=== PATIENT | female | born 1940 | race Caucasian/White ===

== ENCOUNTER 2022-06-21 14:15 | Outpatient (REF) | payer OTHER, SELFPAY ==
--- NOTE | ~2022-06-21 | XR_ITS ---
EXAMINATION: XR LUMBOSACRAL SPINE WITH OBLIQUES CLINICAL INFORMATION: Low back pain COMPARISON: None available. TECHNIQUE: 4 views of the lumbar spine including flexion-extension views FINDINGS: There is curvature of the mid lumbar spine to the left and lumbar sacral spine to the right. Bone alignment is otherwise normal. No instability on flexion-extension views. Degenerative spondylosis and degenerative disc disease at L1-L2 3 and L3-L4. Degenerative disc disease at L5-S1. Lower lumbar spine facet arthritis. No fracture or dislocation. High attenuation air-fluid level in the right abdomen anteriorly question representing gallstones. XR/XR lumbar spine 4V min IMPRESSION: Scoliosis and degenerative changes. No instability on flexion-extension views. Question gallstones.
== END 2022-06-21 14:16 | disposition home or self-care (01) ==
LOC: HO.HOSX 14:15
PROVIDERS: Visit Provider Physician Assistant
DX: M54.40 Lumbago with sciatica, unspecified side (principal)
CPT/HCPCS: 72110

== ENCOUNTER 2022-07-25 09:53 | Inpatient (IN) | payer MEDICARE, SELFPAY ==
--- NOTE | 2022-07-14 | ECG_ITS ---
Test Reason : PREOP Blood Pressure : / mmHG Vent. Rate : 056 BPM Atrial Rate : 056 BPM P-R Int : 186 ms QRS Dur : 086 ms QT Int : 422 ms P-R-T Axes : 055 -14 109 degrees QTc Int : 407 ms Sinus bradycardia Cannot rule out Anterior infarct , age undetermined Abnormal ECG No previous ECGs available Referred By: Norma Johns Electronically Signed By:EVANS NEUMANN
[2022-07-14 12:15] VITALS: BP 156/85; PULSE 56; RESP 20; O2SAT 97; BMI 30.2
--- NOTE | 2022-07-14 12:25 | P.CONAN_ITS ---
Documented by User: Norma Johns NP 07/22/22 08:44 HPI - Anesthesia Eval Consult details Narrative: 81yo F for L3-4,L4-5 Transkambin Lumbar Interbody Fusion Last PCP eval 04/2022. Chronic conditions stable. Mild murmur, no edema/CP/SOB. Discussed with Dr Araiza. No further testing PMFSH Active Problems Active Problems: All Active Problems (Updated 07/14/22 @ 12:09 by Kailyn Alvarado RN) Back pain of lumbar region with sciatica (Acute) Past Medical History Medical History (Updated 07/14/22 @ 12:09 by Kailyn Alvarado RN) Back pain Diverticulosis Elevated cholesterol GERD (gastroesophageal reflux disease) HTN (hypertension) Hypothyroid Lumbar stenosis with neurogenic claudication Osteopenia Peptic ulcer Type 2 diabetes mellitus Family History Family history of problems with anesthesia: No Surgical History Surgical History (Updated 07/14/22 @ 12:11 by Kailyn Alvarado RN) H/O colonoscopy History of back surgery History of carpal tunnel release Hx of bilateral cataract extraction Hx of neck surgery Hx of tubal ligation History of Problems with Anesthesia: No Social History Social History Are you a primary intensive care unit registered nurse to a significant other at home: No Do you presently have visiting nurse or other home services: No Patient Tobacco Use Status: Never used Tobacco Use of substances other than those prescribed or required for medical reasons: No Have you been hit, kicked, punched, or otherwise hurt by someone within the past year? If so, by whom?: No Are you DNR?: No Advance Directives: No (has primary contact listed) Advance Directives Information Provided: Yes Advance Directives on File: No Recently lost weight without trying: No Eating poorly because of decreased appetite: No Nutrition Risks: Surgical patient >75years Poor oral hygiene: No (upper partial) Narrative Narrative: No recent illness No CP/SOB with > 4 mets, only limitation is back pain Meds Allergies Allergy/AdvReac Type Severity Reaction Status Date / Time No Known Allergies Allergy Verified 07/13/22 09:54 Home Medications Medication Instructions Recorded Confirmed Last Taken Type aspirin 81 mg tablet,delayed 81 mg PO DAILY 07/13/22 07/13/22 07/24/22 History release calcium carbonate 600 mg-vitamin 1 tab PO BID 07/13/22 07/13/22 07/24/22 History D3 10 mcg (400 unit) tablet famotidine 20 mg tablet 20 mg PO BID PRN Acid Reflux 07/13/22 07/13/22 07/25/22 History hydrochlorothiazide 25 mg tablet 12.5 mg PO QAM 07/13/22 07/14/22 07/24/22 History levothyroxine 50 mcg tablet 50 mcg PO QAM 07/13/22 07/14/22 07/25/22 History lisinopril 10 mg tablet 10 mg PO QAM 07/13/22 07/14/22 07/24/22 History mirtazapine 7.5 mg tablet 7.5 mg PO BEDTIME PRN Insomnia 07/13/22 07/13/22 07/24/22 History simvastatin 40 mg tablet 40 mg PO BEDTIME 07/13/22 07/14/22 07/24/22 History omega-3s 300 du-xtu-agw-other 1 cap PO QAM 07/14/22 07/14/22 07/24/22 History [id number] oil 1,000 mg capsule ([place]-3 Fish Oil) Exam Exam Date and Time: July 14, 2022 1225 Height,Weight and Vital Signs: Height 5 ft 1 in Weight 72.575 kg Last Vital Signs Pulse 56 07/14/22 12:15 Resp 20 07/14/22 12:15 BP 156/85 H 07/14/22 12:15 Pulse Ox 97 07/14/22 12:15 O2 Del Method Room Air 07/14/22 12:15 Pertinent Lab Results Pertinent Lab Results: Lab Results 07/14/22 07/14/22 07/14/22 Range/Units 12:54 12:54 12:54 WBC 7.6 (4.8-10.8) X10*3/uL RBC 4.54 (4.20-5.50) X10*6/uL Hgb 15.0 (12.0-16.0) g/dl Hct 43.6 (37.0-47.0) % MCV 96.0 (80.0-98.0) fL MCH 33.0 (27.0-33.0) pg MCHC 34.4 (31.0-35.0) g/dl RDW 12.6 (11.0-16.0) % Plt Count 298 (160-400) X10*3/uL MPV 10.1 (9.4-12.3) fL Absolute Nucleated RBC 0.000 (0.0-0.012) X10*3/uL Nucleated RBC % (auto) 0.0 (0.0-0.2) /100WBC Sodium 138 (135-145) mmol/L Potassium 4.4 (3.3-5.1) mmol/L Chloride 102 (96-108) mmol/L Carbon Dioxide 26 (22-29) mmol/L Anion Gap 14 (12-20) BUN 14 (9-16) mg/dL Creatinine 0.77 (0.5-1.4) mg/dL Estim Creat Clear Calc 53.0 Estimated GFR > 60 Random Glucose 137 H (60-115) mg/dL Estimat Average Glucose 151 mg/dL Hemoglobin A1c % 6.9 % Calcium 10.5 H (8.4-10.2) mg/dL Narrative Narrative: EKG 06/2022 Vent. Rate : 056 BPM ? ? Atrial Rate : 056 BPM ?? P-R Int : 186 ms? QRS Dur : 086 ms ? ? QT Int : 422 ms ? ? ? P-R-T Axes : 055 -14 109 degrees ?? QTc Int : 407 ms ? Sinus bradycardia Cannot rule out Anterior infarct , age undetermined Abnormal ECG No previous ECGs available No significant change when compared to 08/2021 EKG from outside facility Airway Mallampati Class: I TM Dist: >3cm Neck ROM: Full Partial: Upper Loose/Missing/Broken Teeth: Yes (lower molars missing) Heart: RRR, +M Lungs: CTAB Assessment and Plan Assessment Anesthesia Assessment: Anesthesia Plan Discussed and PAT Visit Final Anesthetic Review Family History of Problems with Anesthesia: No History of Problems with Anesthesia: No Documented by User: Reina Schmid MD 07/25/22 11:56 PMFSH Past Medical History Medical History (Updated 07/14/22 @ 12:09 by Kailyn Alvarado RN) Back pain Diverticulosis Elevated cholesterol GERD (gastroesophageal reflux disease) HTN (hypertension) Hypothyroid Lumbar stenosis with neurogenic claudication Osteopenia Peptic ulcer Type 2 diabetes mellitus Surgical History Surgical History (Updated 07/14/22 @ 12:11 by Kailyn Alvarado RN) H/O colonoscopy History of back surgery History of carpal tunnel release Hx of bilateral cataract extraction Hx of neck surgery Hx of tubal ligation Social History Social History Are you a primary intensive care unit registered nurse to a significant other at home: No Do you presently have visiting nurse or other home services: No Patient Tobacco Use Status: Never used Tobacco Use of substances other than those prescribed or required for medical reasons: No Have you been hit, kicked, punched, or otherwise hurt by someone within the past year? If so, by whom?: No Are you DNR?: No Advance Directives: No (has primary contact listed) Advance Directives Information Provided: Yes Advance Directives on File: No Recently lost weight without trying: No Eating poorly because of decreased appetite: No Nutrition Risks: Surgical patient >75years Poor oral hygiene: No (upper partial) Meds Allergies Allergy/AdvReac Type Severity Reaction Status Date / Time No Known Allergies Allergy Verified 07/13/22 09:54 Home Medications Medication Instructions Recorded Confirmed Last Taken Type aspirin 81 mg tablet,delayed 81 mg PO DAILY 07/13/22 07/13/22 07/24/22 History release calcium carbonate 600 mg-vitamin 1 tab PO BID 07/13/22 07/13/22 07/24/22 History D3 10 mcg (400 unit) tablet famotidine 20 mg tablet 20 mg PO BID PRN Acid Reflux 07/13/22 07/13/22 07/25/22 History hydrochlorothiazide 25 mg tablet 12.5 mg PO QAM 07/13/22 07/14/22 07/24/22 History levothyroxine 50 mcg tablet 50 mcg PO QAM 07/13/22 07/14/22 07/25/22 History lisinopril 10 mg tablet 10 mg PO QAM 07/13/22 07/14/22 07/24/22 History mirtazapine 7.5 mg tablet 7.5 mg PO BEDTIME PRN Insomnia 07/13/22 07/13/22 07/24/22 History simvastatin 40 mg tablet 40 mg PO BEDTIME 07/13/22 07/14/22 07/24/22 History omega-3s 300 tf-xuc-hcz-other 1 cap PO QAM 07/14/22 07/14/22 07/24/22 History [id number] oil 1,000 mg capsule ([place]-3 Fish Oil) Exam Airway Loose/Missing/Broken Teeth: Lower (missing molars ) Assessment and Plan Final Anesthetic Review ASA Class: II Final Preanesthetic Review: No Changes in Pt Med Stat, Meds/Allgs Chart Reviewed, Consent Obtained/Reviewed and Anes Risks/Benef Reviewed Patient Risk: Low Procedure Risk: Intermediate Anesthetic Plan Anesthetic Plan: GA Disposition: Standard PACU
[2022-07-14 13:27] LABS: Hematocrit 43.6 % (37.0-47.0); Mean Corpuscular HGB Conc 34.4 g/dl (31.0-35.0); Mean Platelet Volume 10.1 fL (9.4-12.3); Platelet Count 298 X10*3/uL (160-400); Red Blood Count 4.54 X10*6/uL (4.20-5.50); Red Cell Distribution Width 12.6 % (11.0-16.0); White Blood Count 7.6 X10*3/uL (4.8-10.8)
[2022-07-14 13:55] LABS: Estimated Average Glucose 151 mg/dL; Hemoglobin A1c % 6.9 %
[2022-07-14 14:11] LABS: Anion Gap 14 (12-20); Blood Urea Nitrogen 14 mg/dL (9-16); Calcium 10.5 mg/dL (8.4-10.2); Carbon Dioxide 26 mmol/L (22-29); Chloride 102 mmol/L (96-108); Estimated Glomerular Filt Rate > 60; Glucose Random 137 mg/dL (60-115); Potassium 4.4 mmol/L (3.3-5.1); Sodium 138 mmol/L (135-145)
[2022-07-25] VITALS (18 sets, daily range): BP systolic 116–166; BP diastolic 57–84; PULSE 54–63; RESP 14–20; TEMP 36.2–37.4; O2SAT 94–99
--- NOTE | ~2022-07-25 | FL_ITS ---
EXAMINATION: XR FLUOROSCOPY WITH IMAGES CLINICAL INFORMATION: L3-4, L4-5 transkambin Lumbar interbody fusion COMPARISON: Lumbar radiographs 06/21/2022. TECHNIQUE: Fluoroscopy Supervised By: Dr. Olegario Cheema. Fluoroscopy Time: 3.1 minutes. Cumulative Dose: 225.9 mGy. Images: 4. FINDINGS: There are bilateral pedicle screws and rodding 5 with disc spacers L3-L4 and L4-L5. The hardware appears intact. Alignment is unremarkable. There are multilevel degenerative changes as noted on recent plain films. FL/FL guidance in OR IMPRESSION: Fluoroscopy for neurosurgical procedures.
--- NOTE | 2022-07-25 10:07 | PHA.MEDREC ---
Pharmacy Consult ? Medication Reconciliation Pharmacy has completed the medication reconciliation. Reviewed med rec done by nursing
[2022-07-25] MEDS: Lactated Ringers 1,000 ML 100 ML IVCONT (10:27)
[2022-07-25] MEDS: Gabapentin 300 MG CAPSULE PO (10:33)
[2022-07-25] MEDS: methocarbamoL 750 MG TABLET PO (10:33)
--- NOTE | 2022-07-25 15:07 | W.PM.OPN ---
Operative Note Operative Note Date of Service: 07/25/22 Narrative: Preoperative Diagnosis: (1) lumbar degenerative scoliosis (2) right lumbar radiculopathy Procedure: 1) L3-4, L4-5 oblique lateral lumbar interbody fusion with discectomy, preparation of the endplates and placement of an expandable cage at L4-5 and a bullet cage packed with allograft, anterior to the transverse process and modified prone position, with intraoperative biplanar fluoroscopy imaging and electrophysiological monitoring 2) L3-L5 posterior minimally invasive pedicle screw placement and posterior lateral instrumentation and fusion with electrophysiological monitoring Consent Informed Consent was obtained for this operation. I have explained the nature, purpose and benefits of the operation. I have discussed the risks and benefit of the operation including possible complications or adverse events with patient/family. Alternative(s) were discussed with the patient with their relative benefits and risks as well as the consequences of not accepting the operation were included in obtaining consent. Surgeon: AMILCAR WARD MD, PHD Procedure Assisted By: Darrin Stephens Description of Procedure: this patient had a previous lumbar foraminotomy done that only provided short-term relief. She was offered a Minimally invasivecorrection of her lumbar degenerative scoliosis, which should give an indirect decompression of the nerve roots structures. The patient was offered an oblique lumbar lateral interbody fusion followed by a posterior lateral instrumented fusion L3-L5. The procedure and complications were explained and she was consented. The patient was brought to the operating room and endotracheally intubated. The patient was put in a prone position on the [facility] spine table. 2C arms were installed for fluoroscopy. Prepping and draping was done followed by timeout. The landmarks, including spinal processes, transverse processes, disc space, endplates and pedicles are identified and marked. The following steps are taken for the L3-4 and L4-5 levels: L3-4Cage size 9 mm high and 33 mm long titanium static cage; L4-5 expandable cage, expanded to 13 mm and 33 long. A small incision was made superior to the mid iliac crest and then using biplanar fluoroscopy visualization, under electrophysiological monitoring and stimulation, we introduced an electrophysiological probe through the retroperitoneal space into the desired disc anterior to the transverse process and then passed it into the disc space after finding a silent window. The sleeve was retained and the probe was removed, then the K wire was passed sequentially into the disc space. A dilating tube was then passed along the same route. Following this, a working channel was manually held in position while a series of disc cleaning tools were passed through the channel to remove the affected disc under clear and direct biplanar fluoroscopic visualization, decompress the nerve roots and equal corticated vertebral endplates at this segment. Arthrodesis of the intervertebral space for an anterior retroperitoneal exposure and application of intervertebral biomechanical device was then accomplished by using the working channel that had been placed into the retroperitoneal space anterior to the transverse process. After adequate decompression and preparation of the endplates, we then put allograft anterior into the disc space followed by a titanium interbody spacer, which is packed tightly with allograft bone for stabilization and arthrodesis of the anterior vertebral space and inserted the cage into the midportion of the intervertebral disc. This again was done on the biplanar fluoroscopic visualization. All bone was confined to the borders of the disc space. The following steps are then taken for the L3-W7zpkrp: Bilateral L3 screws with a diameter of 5.5 x 45, bilateral L4 screws with a diameter of 5.5 x 45 and bilateral L5 screws with a diameter of 6.5 x 45 mm. 2C arms were installed for fluoroscopy. A right paramedian incision was made lateral from the L3 pedicle. The Pediguard tap was used to create a transpedicular trajectory into the vertebral body. The K wire was inserted. The steps were repeated for the left L3 and bilateral L4 and L5 pedicles, A specially designed instrument was passed over the K wires to decorticate the posterior lateral gutter. A total of 6 pedicle screws were inserted with the above-mentioned diameters for the L3-L5 level. Bilaterally a 70 mm arnaud was inserted and locked down with locking caps. Final x-rays and AP and lateral projection showed good position of the interbody device and instrumentation. Allograft was laid down in the posterior lateral gutter to complete the posterior lateral fusion. The paramedian incisions and the incision in the flank were closed in 2 layers. Steri-Strips were used to approximate the incisions. An OpSite with Tegaderm was used to cover the incision. All sponge and needle counts were correct. The patient was extubated and transported in a stable condition to the recovery room. This procedure was done with the aid of a physican's dietary assistant as a qualified resident was not available. The physician dietary assistant was critical for the following aspects of surgery: insertion of the bilateral rods; locking down of locking caps and closure of the incisions Anesthesia: General Estimated Blood Loss (ml): 70 Specimen: None Duration of Surgery: 130 Postoperative Plan: Admit to floor for monitoring
[2022-07-25] MEDS: HYDROmorphone HCl 0.5 MG/0.5 ML SYRINGE 0.25 MG IVPUSH ×4 (16:14→17:20)
[2022-07-25] MEDS: Ketorolac Tromethamine 15 MG/ML VIAL IVPUSH ×2 (17:06→21:44)
[2022-07-25] MEDS: oxyCODONE HCl Immed Release 5 MG TABLET PO (17:29)
[2022-07-25] MEDS: Acetaminophen 1,000 MG/100 ML PIGGYBACK 400 MG IV ×2 (18:00→21:42)
[2022-07-25] MEDS: 0.9 % Sodium Chloride 1,000 ML 75 ML IVCONT (18:00)
[2022-07-25] MEDS: lisinopriL 10 MG TABLET PO (18:45)
[2022-07-25] MEDS: hydroCHLOROthiazide 12.5 MG TABLET PO (18:45)
[2022-07-25] MEDS: Docusate Sodium 100 MG CAPSULE PO (19:32)
[2022-07-25] MEDS: ceFAZolin Sodium/Dextrose,Iso 2 GM/50 ML PIGGYBACK IV (19:32)
[2022-07-25] MEDS: Atorvastatin Calcium 20 MG TABLET PO (19:32)
[2022-07-25] MEDS: Calcium + Vitamin D 250 MG TABLET PO (19:32)
[2022-07-25] MEDS: Famotidine 20 MG TABLET PO (19:33)
[2022-07-25] MEDS: ondansetron HCL 4 MG/2 ML VIAL IVPUSH (19:36)
[2022-07-26] MEDS: ceFAZolin Sodium/Dextrose,Iso 2 GM/50 ML PIGGYBACK IV ×2 (01:29→08:33)
[2022-07-26 03:24] VITALS: BP 107/53; PULSE 59; RESP 16; TEMP 37.2; O2SAT 100
[2022-07-26] MEDS: Acetaminophen 1,000 MG/100 ML PIGGYBACK 400 MG IV ×2 (03:48→09:49)
[2022-07-26] MEDS: Ketorolac Tromethamine 15 MG/ML VIAL IVPUSH ×2 (03:48→09:48)
[2022-07-26] MEDS: Levothyroxine Sodium 50 MCG TABLET PO (05:53)
[2022-07-26] MEDS: 0.9 % Sodium Chloride 1,000 ML 75 ML IVCONT (06:01)
[2022-07-26] MEDS: oxyCODONE HCl Immed Release 5 MG TABLET PO (06:05)
[2022-07-26 07:39] VITALS: BP 140/61; PULSE 85; RESP 20; TEMP 36.6; O2SAT 97
--- NOTE | 2022-07-26 07:53 | HO.NEURO.PN ---
Neurosurgery Operative Note Date of Service: 07/26/22 Narrative: Postop day 1. L3-4, L4-5 trans Kambin inter body lumbar fusion patient reports back discomfort, but her preoperative leg pain is improved. She has been up walking to the bathroom. Otherwise doing okay, some nausea but is tolerating some food. Afebrile, vital signs are stable physical exam: Patient is awake alert oriented x3, demonstrates 5/5 strength all major muscle groups with normal sensation. Back dressings have been changed, no signs of hemat héctor. Impression: Postop day 1. L3-4, L4-5 trans Kambin interbody lumbar fusion, patient clinically doing okay, neurologically intact. The plan will be for PT to see the patient today, hopefully anticipate discharge later today or tomorrow. Patient seen at bedside with Dr. Cheema.
[2022-07-26 08:29] VITALS: BP 140/61; PULSE 85; O2SAT 97
[2022-07-26] MEDS: hydroCHLOROthiazide 12.5 MG TABLET PO (08:33)
[2022-07-26] MEDS: Calcium + Vitamin D 250 MG TABLET PO (08:33)
[2022-07-26] MEDS: Docusate Sodium 100 MG CAPSULE PO (08:33)
[2022-07-26] MEDS: Aspirin Enteric Coated 81 MG TABLET.DR PO (08:33)
[2022-07-26] MEDS: lisinopriL 10 MG TABLET PO (08:33)
--- NOTE | 2022-07-26 13:03 | P.DS_ITS ---
DS: Providers Provider Date of Service: 07/25/22 Date of admission: 07/25/22 09:53 Date of discharge: 07/26/22 Primary care physician: Kai Wilkins MD Admitting clinician: Olegario Cheema DS: Diagnosis Discharge Diagnosis (1) Back pain of lumbar region with sciatica: Status: Acute DS: Summary Time Spent with Patient Time attestation: Total time managing care of this patient today ____ minutes. Discharge coordination time: Less than 30 minutes Quality: Safe Use of Opioids Does Pt have an Active Cancer Diagnosis on the Problem List?: No Quality: Stroke Does the patient have a stroke diagnosis?: No Physical Exam Vital Signs: Vital Signs: Last Vital Signs Temp 97.9 F 07/26/22 07:39 Pulse 85 07/26/22 08:29 Resp 20 07/26/22 07:39 BP 140/61 H 07/26/22 08:29 Pulse Ox 97 07/26/22 08:29 O2 Del Method Nasal Cannula 07/26/22 07:39 O2 Flow Rate 2 07/26/22 07:39 BMI result Body Mass Index 30.2 Discharge Plan Discharge Anticipated Discharge Date/Time: 07/26/22 13:04 Patient Disposition: Home Health Service Discharge Diagnosis: lumbar degenerative disk disease Referrals: Kai Wilkins MD [Primary Care Provider] - 1 Week Discharge Medications: New docusate sodium [Colace] 100 mg capsule 100 mg PO BID Qty: 20 0RF oxycodone 5 mg tablet See Rx Instructions .ROUTE .COMPLEX PRN (Reason: pain) Qty: 40 0RF Rx Instructions: 1-2 tabs po q 4 hours prn pain Partial Fill upon patient request. Continued aspirin 81 mg Tablet,Delayed Release (Dr/Ec) 81 mg PO DAILY simvastatin 40 mg tablet 40 mg PO BEDTIME famotidine 20 mg tablet 20 mg PO BID PRN (Reason: Acid Reflux) levothyroxine 50 mcg tablet 50 mcg PO QAM lisinopril 10 mg tablet 10 mg PO QAM hydrochlorothiazide 25 mg tablet 12.5 mg PO QAM mirtazapine 7.5 mg tablet 7.5 mg PO BEDTIME PRN (Reason: Insomnia) calcium carbonate-vitamin D3 600 mg-10 mcg (400 unit) Tablet 1 tab PO BID [place]-3 Fish Oil 300-1,000 mg Capsule 1 cap PO QAM Discharge Orders: Discharge Order (Routine); Ordered 07/26/22 Ordered By: Darrin Silverio Diet: Advance to usual diet Activity on Discharge: As tolerated Stand Alone Forms: Patient Portal Discharge page Activity Restrictions/Additional Instructions: After your spinal surgery we ask you to observe the following res trictions/guidelines: Activity: It is normal to feel some discomfort as you increase your activity, but that will improve with time. We ask you avoid heavy lifting or acitivities that cause pain. As a general rule, 8lbs is a safe limit for lifting right after surgery. Walk as much as you feel comfortable but not to exhaustion. You will feel extra tired the first few days after surgery. Stay well hydrated. It is OK to walk up and down stairs You may return to driving when you are off narcotics (such as vicodin, oxycodone, dilaudid, etc), and you are back to normal functional capacity. If you have any concerns please check with office before driving. Return to work is specific to each patient and each surgery, so please speak with your doctor/PA at first follow up. Please bring paperwork such as FMLA at that time if you need it filled out. Medications: We will give you a short supply of narcotics after surgery (usually one weeks worth). If you need more please call the office but do not use more than prescribed. You will need to give our office 48 hours notice if you need narcotics refilled and we do not fill narcotics on weekends or evenings. If you are on a narcotic, it is a good idea to take a stool softener such as colace or senna to avoid constipation If you take blood thinner such as aspirin, Plavix, Coumadin, Effient, Eliquis etc for conditions such as Afib, DVT, Pulmonary embolus, coronary disease, stents etc please speak with your surgeon about specific details as to when you can resume these medications. You can resume NSAIDs on post op day 1 (eg: Motrin, Naproxen, etc). Follow up: Please call the office, , after surgery to arrange a 3 week follow up for wound check. Wound Care: You may remove your dressing on the first day after surgery. You may leave open to air. Please do not remove the steri strips underneath. they will fall off on their own in one week. IT IS NORMAL FOR THE WOUND TO OOZE OR BE BLOODY FOR A FEW DAYS AFTER SURGERY. IF THIS HAPPENS JUST PLACE NEW DRESSING OVER IT TO AVOID STAINING CLOTHES. You may shower on post op day # 1 We ask that you do not let the water soak the wound. If it does get wet, just towel dry lightly. Please do not scrub your incision or place any type of chemical/ointment on the wound. No tub baths, pools or jacuzzis for one month. If you have any leaking or redness from your wound, or fevers, please call office Care Plan Goals: walk, mobilize at home Health Concerns: none Plan of Treatment: discharge Assessment: stable
--- NOTE | 2022-07-26 13:08 | P.F2F_ITS ---
Service Date Service Date: 07/26/22 Encounter Date of encounter: 07/26/22 Reasons for Services Signs and symptoms assessed: pt has post op pain Reason for [facility]: neurological assessment, wound care and postoperative assessment and/or care Reason for physical therapy: home safety and mobility, therapeutic exercises and gait/transfer training Homebound: Leaving the home is medically contraindicated at this time without the asist of a device and/or another person due th the listed conditions above and below. Reason homebound: unsteady gait / fall risk, pain with ambulation and unable to drive Certification: Based on the above findings, I certify that this patient is confined to the home and needs intermittent [facility] care, physical therapy and/or speech therapy, or continues to need occupational therapy. The patient is under my care, and I have initiated the establishment of the plan of care. The patient will be followed by a physician who will periodically review the plan of care. Time Spent With Patient Time: Total time managing care of this patient today _10___ minutes.
--- NOTE | 2022-07-26 13:47 | HO.POSTANES ---
Post Anesthesia Evaluation Post Anesthesia Evaluation Date of Service: 07/26/22 Vital Signs: Vital Signs Temp Pulse Resp BP Pulse Ox O2 Del Method O2 Flow Rate 07/26/22 08:29 85 140/61 H 97 07/26/22 07:39 97.9 F 85 20 140/61 H 97 Nasal Cannula 2 07/26/22 03:24 98.9 F 59 16 107/53 L 100 Nasal Cannula 2 Anesthesia: General Endotracheal-GETA Mental Status: Awake Pain Control: Satisfactory Nausea/Vomiting: None Hydration: Adequate Anesthesia-Related Issues: No Anes. Related Issues
--- NOTE | 2022-07-26 14:07 | MHC.CM.PN ---
PATIENT LIVES WITH [facility]/HCP COPY REQUESTED. WALKER IN HOME NO [facility] OR [facility]. SHE IS AWARE THAT CM IS ATTEMPTING TO SECURE [facility] SERVICES. PATIENT IS DC AND [facility] IS HERE TO TRANSPORT. IMM 07/26 INCHART
--- NOTE | 2022-07-26 14:38 | MHC.CM.PN ---
Addendum entered by Lila Benito RN 07/26/22 14:42: MESSAGE LEFT FOR PATIENT AT [phone] TO INFORM OF SERVICES AND START OF CARE Original Note: POST DC NOTE - PATIENT ACCEPTED BY [facility] SOC TO BE Monday07/28/22 AGENCY TO INFORM PATIENT AND SPOUSE
== END 2022-07-26 14:28 | disposition home health service (06) | DRG 458 ==
LOC: HO.SSSA 10:06 → HO.S3 15:47
PROVIDERS: Neurological Surgery; Nurse Practitioner; Admitting Provider Physician Assistant; PCP Internal Medicine; Visit Provider Physician Assistant
PROC: 0SG00A0 Fusion of Lumbar Vertebral Joint with Interbody Fusion Device, Anterior Approach, Anterior Column, Open Approach (ICD-10-PCS; principal; 2022-07-25 10:40)
DX: M54.16 Radiculopathy, lumbar region (principal); M41.56 Other secondary scoliosis, lumbar region; K21.9 Gastro-esophageal reflux disease without esophagitis; E03.9 Hypothyroidism, unspecified; I10 Essential (primary) hypertension; M85.80 Other specified disorders of bone density and structure, unspecified site; E11.9 Type 2 diabetes mellitus without complications; Z79.82 Long term (current) use of aspirin; Z79.890 Hormone replacement therapy; Z79.899 Other long term (current) drug therapy
CPT/HCPCS: 36415; 80048; 83036; 85027; 93005; 97162; C1713; J0131; J0330; J0690; J1100; J1170; J1885; J2370; J2405; J3010; L8699

== ENCOUNTER 2022-08-03 12:11 | Outpatient (REF) | payer MEDICARE, SELFPAY ==
--- NOTE | ~2022-08-03 | CT_ITS ---
EXAMINATION: CT LUMBAR SPINE WITHOUT CONTRAST CLINICAL INFORMATION: Lumbago with sciatica. Severe right leg pain after spinal fusion. COMPARISON: Lumbar spine MRI 05/30/2022 TECHNIQUE: Helical non-contrast CT images were obtained through the lumbar spine without contrast. Multiplanar reformats were rendered and reviewed. This CT examination was performed using dose optimization techniques as appropriate, variously including the following: *Automated exposure control *Adjustment of mA and/or kV according to patient size (this includes techniques or standardized protocols for targeted exams where dose is matched to indication/reason for exam; i.e. extremities or head) *Use of iterative reconstruction technique DLP: 575 mGy-cm FINDINGS: There is mild levoscoliotic curvature in the lower lumbar spine. There are postoperative findings related to instrumented fusion from L3 through L5 with transpedicular screws, paired rods, and interbody devices in the L3-L4 and L4-L5 disc spaces. There is no evidence of hardware fracture. No loosening is seen. There is fusion across the L3-L4 disc space. Some bridging bone is seen within the central aspect of the interbody device at L4-L5. There is some subsidence of the L4-L5 into the superior aspect of L5. There is advanced disc height loss at L1-L2. There is chronic interbody fusion at L5-S1. The alignment appears preserved. Cholelithiasis is noted. Atheromatous changes are seen within the abdominal aorta and its branch vessels. There is fatty atrophy of the posterior paraspinal musculature. SPINAL LEVELS: L1-L2: Posterior osteophytic ridging with disc bulging. No spinal canal stenosis. No significant neural foraminal stenosis. L2-L3: Disc bulging with osteophytic ridging. No spinal canal stenosis. Minimal narrowing of the neural foramina. L3-L4: Instrumented fusion. Disc bulging with osteophytic ridging asymmetrically towards the right. No spinal canal stenosis. Mild right neural foraminal stenosis. L4-L5: Instrumented fusion. Posterior decompression. No spinal canal stenosis. Ill-defined osteophytic ridging and possible right foraminal protrusion results in right-sided neural foraminal stenosis. L5-S1: Fusion of the posterior elements. Interbody fusion changes. Posterior decompression changes. No spinal canal or significant neural foraminal stenosis. CT/CT lumbar spine wo IV con IMPRESSION: 1. Postoperative findings related to instrumented fusion from L3 through L5. No evidence of hardware fracture or loosening. 2. At L4-L5 there is right-sided neural foraminal stenosis which is difficult to more precisely characterize. 3. No significant narrowing of the spinal canal. 4. Incidentally noted cholelithiasis.
== END 2022-08-03 12:12 | disposition home or self-care (01) ==
LOC: HO.CT 12:11
PROVIDERS: PCP Internal Medicine; Visit Provider Physician Assistant
DX: M54.40 Lumbago with sciatica, unspecified side (principal); Z98.1 Arthrodesis status
CPT/HCPCS: 72131; 99212

== ENCOUNTER → 2022-08-24 15:09 | Outpatient (BNVA) | payer MEDICARE, SELFPAY | PROVIDERS: PCP Internal Medicine; Visit Provider Neurological Surgery ==

== ENCOUNTER 2022-10-05 12:49 | Outpatient (AMB) | payer MEDICARE, SELFPAY ==
--- NOTE | 2022-10-05 13:36 | HO.SPINEOV ---
Intake Intake Visit Reasons: 2nd Post op Intake Note: Mrs. Villalobos is here today for her 2nd post-op visit. Principal Systems Engineer Required: No Allergies No Known Allergies Allergy (Verified 07/13/22 09:54) Assessment & Plan Assessment & Plan (1) Status post lumbar and lumbosacral fusion by anterior technique: Code(s): Z98.1 - Arthrodesis status Plan Dear?colleague,? On?10/05/2022,?I?saw?for?2nd?postoperative?visit?your?patient?Jacque Villalobos. ?She?underwent?a?minimally?invasive?lumbar?fusion?for?severe?right?leg?pain.??Postoperative,?she?was?doing?well?until?day?3?when?she?developed?severe?radiculopathy.??As?promised,?the?radiculopathy?disappeared?and?currently?she?is?happy?that?she?under went?a?surgery.??She?has?remaining?burning?on?the?top?of?her?right?foot.??I?am?optimistic?that?this?will?improve?as?well. I?would?like?to?follow-up?in?3?months. Olegario?Anette??,?PhD Spine?Fellowship?Trained?Neurosurgeon Director,?[facility]? [facility]? Coding Level of Care Code Global (16270) Diagnoses Status post lumbar and lumbosacral fusion by anterior technique Z98.1
== END 2022-10-05 13:47 | disposition home or self-care (01) ==
PROVIDERS: PCP Internal Medicine; Visit Provider Neurological Surgery
DX: Z98.1 Arthrodesis status (principal)
CPT/HCPCS: 99024

== ENCOUNTER → 2022-10-05 12:49 | Outpatient (BNVA) | payer MEDICARE, SELFPAY | PROVIDERS: PCP Internal Medicine; Visit Provider Neurological Surgery ==

== ENCOUNTER 2023-01-04 13:25 | Outpatient (REF) | payer MEDICARE, SELFPAY ==
--- NOTE | ~2023-01-04 | XR_ITS ---
EXAMINATION: XR LUMBOSACRAL SPINE CLINICAL INFORMATION: Arthrodesis COMPARISON: Previous x-ray June [address] of the lumbar spine July 2022 TECHNIQUE: Two views of the lumbosacral spine. FINDINGS: There is mild curvature of the lower lumbar spine to the left. There is posterior fusion hardware with rods and bilateral transpedicular screws from L3 to L5 and interbody devices at L3-L4 and L4-L5. Orthopedic hardware appears intact. There is slight loss of height of the left superior endplate of the L3 vertebral body questionable for mild old compression fracture. There is degenerative disc disease and spondylosis at L1-L2, L2-L3 and L5-S1. XR/XR lumbar spine 2-3V IMPRESSION: Stable postsurgical change from L3 to L5. Question mild old L3 left superior endplate compression fracture.
== END 2023-01-04 13:26 | disposition home or self-care (01) ==
LOC: HO.HOSX 13:25
PROVIDERS: Visit Provider Neurological Surgery
DX: Z98.1 Arthrodesis status (principal)
CPT/HCPCS: 72100; 99212

== ENCOUNTER 2023-01-04 13:49 | Outpatient (AMB) | payer MEDICARE, SELFPAY ==
--- NOTE | 2023-01-04 14:04 | A.SPINEOV_ITS ---
Intake Intake Visit Reasons: 3 months f/up Intake Note: Mrs. Villalobos is here today for her 3 month f/u w/x-rays. Real Estate Firm Manager Required: No Allergies No Known Allergies Allergy (Verified 07/13/22 09:54) Assessment & Plan Assessment & Plan (1) Status post lumbar and lumbosacral fusion by anterior technique: Code(s): Z98.1 - Arthrodesis status Plan Dear colleague, On January 04, 2023, I saw for follow-up Jacque Villalobos. She underwent an L3-4 and L4-5 minimally invasive lumbar fusion approximately 3 months ago. She was doing very well until last weekend where she was sitting for 6 hours. She developed a flare-up of predominantly back pain and minor aches in her right leg. Today's x-ray showed good position of the interbody devices and instrumentation. I am hopeful that the FLAIR will recover by itself. She will call my office when it increases. Otherwise I will see her in 6 months for follow-up. Orders: Orders XR lumbar spine 2-3V Today Z98.1 - Arthrodesis status Coding Level of Care Code Est Pt Level 2 (73266) Diagnoses Status post lumbar and lumbosacral fusion by anterior technique Z98.1
== END 2023-01-04 14:20 | disposition home or self-care (01) ==
PROVIDERS: PCP Internal Medicine; Visit Provider Neurological Surgery
DX: Z98.1 Arthrodesis status (principal)
CPT/HCPCS: 99212

== ENCOUNTER 2023-04-06 15:03 | Outpatient (AMB) | payer MEDICARE, SELFPAY ==
--- NOTE | 2023-04-06 15:58 | MHC.OFFVIS ---
Intake Intake Visit Reasons: back and leg pain Allergies No Known Allergies Allergy (Verified 07/13/22 09:54) COUNTS INCLUDE 234 BEDS AT THE [facility] Medical History Back pain Peptic ulcer Diverticulosis Osteopenia Hypothyroid GERD (gastroesophageal reflux disease) Type 2 diabetes mellitus Lumbar stenosis with neurogenic claudication Elevated cholesterol HTN (hypertension) Surgical History (Updated 08/03/22 @ 14:07 by Olegario Cheema MD, PhD) Hx of bilateral cataract extraction Hx of neck surgery Hx of tubal ligation H/O colonoscopy History of carpal tunnel release History of back surgery Social History Household Members: Spouse Housing: House Are you a primary care coordination manager to a significant other at home: No Do you presently have visiting nurse or other home services: No Comment: uses cane on occasion Patient Tobacco Use Status: Never used Tobacco service: No Current occupational status: retired Assessment & Plan Assessment & Plan (1) Back pain of lumbar region with sciatica: Code(s): M54.40 - Lumbago with sciatica, unspecified side Plan MRs Villalobos is here in follow-up today. She underwent minimally invasive L3-4, L4-5 fusion last year with good results. She was doing okay until a few weeks ago when she started to notice an acute increase in pain going down her right leg into her right lateral calf. It feels just like the nerve pain that she had before surgery if not worse. She has been trying to get around, but it has been near impossible to walk or do any significant activity. No weakness or numbness of her foot. She has been taking Tylenol. She has not done any rehab her PT at this point obviously. Her strength is okay but she has an antalgic gait. I am going to order gabapentin for her. She can not take steroids because of history of ulcers. She can not so not take NSAIDs. I will order a noncontrast lumbar CT here at [facility] in follow up with her afterwards. It sounds like she may have herniated a disc. She can not have an MRI because of a pacemaker. Total amount of time spent in this visit was 20 minutes in discussion of symptoms, ordering imaging and subsequent plan of care Darrin Cheema MD,PhD [facility] Medications: New gabapentin 300 mg PO TID 90 caps 11RF Coding Level of Care Code Est Pt Level 3 (99397) Diagnoses Back pain of lumbar region with sciatica M54.40
== END 2023-04-06 16:03 | disposition home or self-care (01) ==
PROVIDERS: PCP Internal Medicine; Visit Provider Physician Assistant
DX: M54.40 Lumbago with sciatica, unspecified side (principal)
CPT/HCPCS: 99213

== ENCOUNTER → 2023-04-06 15:03 | Outpatient (BNVA) | payer MEDICARE, SELFPAY | PROVIDERS: PCP Internal Medicine; Visit Provider Physician Assistant | DX: M54.40 Lumbago with sciatica, unspecified side (principal) | CPT/HCPCS: 99212 ==

== ENCOUNTER 2023-05-05 14:46 | Outpatient (REF) | payer MEDICARE, SELFPAY ==
--- NOTE | ~2023-05-05 | CT_ITS ---
EXAMINATION: CT LUMBAR SPINE WITHOUT CONTRAST CLINICAL INFORMATION: Low back pain, sciatica COMPARISON: CT lumbar spine 08/03/2022, lumbar radiographs 01/04/2023 TECHNIQUE: A multidetector CT acquisition of the lumbar spine is obtained without contrast. This CT examination was performed using dose optimization techniques as appropriate, variously including the following: *Automated exposure control *Adjustment of mA and/or kV according to patient size (this includes techniques or standardized protocols for targeted exams where dose is matched to indication/reason for exam; i.e. extremities or head) *Use of iterative reconstruction technique DLP: 537.63 mGy-cm mGy-cm FINDINGS: Levocurvature of the lumbar spine. The normal lumbar lordosis is preserved. Diffuse osteopenia. Redemonstrated postsurgical changes from L3 through L5 fusion with paired pedicle screws, interlocking vertical rods, and interbody fusion devices at L3-L4 and L4-L5. There is fusion across the L3-L4 intervertebral disc space. Questionable trace lucency along the L5 pedicle screws (7-24). Chronic superior endplate height loss at L3 Please note that canal patency is not well assessed on this examination due to inherent limitations of CT without intrathecal contrast. Within these limitations, multilevel degenerative changes with level by level detail are as follows: L1-L2: Disc bulge and osteophytic ridging without significant spinal canal stenosis. The neural foramen are not significantly narrowed. L2-L3: Disc bulge and osteophytic ridging with bilateral foraminal disc protrusions. Stable mild narrowing of the right neural foramen. Facet arthropathy. L3-L4: Instrumented fusion. Osteophytic ridging which is eccentric to the right. Facet arthropathy. The spinal canal is without high-grade stenosis. Mild narrowing of the right neural foramen. L4-L5: Instrument fusion. Prior right hemilaminectomy. Osteophytic ridging extending into the bilateral neural foramen. The spinal canal is not significantly narrowed. There is stable severe right neural foraminal stenosis with exiting nerve root impingement secondary to lateral osteophyte formation. Moderate narrowing of the left neural foramen. L5-S1: Posterior decompression. Fusion of the posterior elements. No high-grade spinal canal or neural foraminal stenosis Cholelithiasis. Nonspecific thickening of the left adrenal gland. Atherosclerosis of the abdominal aorta and iliac arteries. CT/CT lumbar spine wo IV con IMPRESSION: Redemonstrated L3-L5 posterior and interbody fusion. There is questionable new trace lucency along the L5 pedicle screws. While this may be partially exaggerated by technique, attention on follow-up is recommended to monitor stability. Stable advanced right neural foraminal stenosis at L4-L5 with probable exiting nerve root impingement. Additional degenerative changes as described above appear comparable to prior. Cholelithiasis.
== END 2023-05-05 14:47 | disposition home or self-care (01) ==
LOC: HO.CT 14:46
PROVIDERS: PCP Internal Medicine; Visit Provider Physician Assistant
DX: M54.40 Lumbago with sciatica, unspecified side (principal)
CPT/HCPCS: 72132

== ENCOUNTER 2023-06-07 10:54 | Outpatient (AMB) | payer MEDICARE, SELFPAY ==
--- NOTE | 2023-06-07 11:11 | HO.SPINEOV ---
Intake Intake Visit Reasons: CT follow up Intake Note: Ms. Villalobos is here today to F/u on her Lumbar Spine CT. Courtesy Bus Driver Required: No Allergies No Known Allergies Allergy (Verified 06/07/23 11:30) Assessment & Plan Assessment & Plan (1) Status post lumbar and lumbosacral fusion by anterior technique: Code(s): Z98.1 - Arthrodesis status Plan Dear colleague, on 06/07/2023 I saw for final visit Jacque Villalobos. She underwent an L3-4 and L4-5 lumbar fusion in July last year. Postoperatively she was complaining of a right lumbar radiculopathy and weakness. The pain subsided and the weakness is almost gone. She had an episode of recurrent right leg pain and therefore a CT scan of the lumbar spine was ordered which showed a accurate position of the hardware. Currently, she denies leg pain. She still using gabapentin, which can be stopped. She will return to my office on an as-needed basis. Thank you for letting me take care of your patient. Olegario Cheema MD, PhD Spine Fellowship Trained Neurosurgeon Director, [facility] [place] [facility] Coding Level of Care Code Est Pt Level 2 (37419) Diagnoses Status post lumbar and lumbosacral fusion by anterior technique Z98.1
== END 2023-06-07 12:12 | disposition home or self-care (01) ==
PROVIDERS: PCP Internal Medicine; Visit Provider Neurological Surgery
DX: Z98.1 Arthrodesis status (principal)
CPT/HCPCS: 99212

== ENCOUNTER → 2023-06-07 10:54 | Outpatient (BNVA) | payer MEDICARE, SELFPAY | PROVIDERS: PCP Internal Medicine; Visit Provider Neurological Surgery | DX: Z98.1 Arthrodesis status (principal) | CPT/HCPCS: 99212 ==

== ENCOUNTER 2023-11-29 13:02 | Outpatient (AMB) | payer MEDICARE, SELFPAY ==
--- NOTE | 2023-11-29 13:05 | HO.SPINEOV ---
Intake Visit Reasons: Back and leg pain Intake Note: Mrs. Villalobos is here today c/o right sided low back/leg pain. Director Of Medical Staff Services Required: No Allergies No Known Allergies Allergy (Verified 11/29/23 13:09) Assessment & Plan Assessment & Plan (1) Neuroforaminal stenosis of lumbar spine: Code(s): M48.061 - Spinal stenosis, lumbar region without neurogenic claudication Category: Medical (2) Lumbar radiculopathy, right: Code(s): M54.16 - Radiculopathy, lumbar region Category: Medical Plan Dear colleague, On on 11/29/2023, I saw a Jacque Villalobos for right leg pain. As you know, this patient underwent a minimally invasive L3-4 and L4-5 lumbar fusion in the past. She returns stating that she developed severe pain radiating to her right hip to the low part of her leg into her foot since September. The pain is severe. She visited an orthopedic surgeon thinking that it was her bunion. The orthopedic surgeon referred her to me for further evaluation. The pain is worse with walking and standing and improves when she sits down. She increase the gabapentin to 3 times a day but this is not successful. She used to exercise and go for walks but this is not longer possible due to the pain. The pain is debilitating and affecting her quality of life. On exam, she ambulates with a walker. Flexing forward improves the pain. Straight leg raise produces pain in the right hip. Hip examination is normal for hip pathology. SI joint tests are negative. Motor and sensory exam are intact. I reviewed a CT of the lumbar spine of 05/05/2023 that does show severe right L4 foraminal stenosis caused by a piece of bone graft. In summary, this patient is suffering from a right lumbar radiculopathy most likely related due to severe right L4 neuroforaminal stenosis. I offered her a right L4 foraminotomy and possible removal of the allograft bone to decompress the exiting L4 nerve root. She takes aspirin which she will continue 1 week prior to surgery. She has a pacemaker but denies cardiac symptoms or pulmonary symptoms. She was cleared by the showroom executive director for less surgery and I do not see a reason why she needs to return for a clearance. I hope that the anesthesiologist agrees with me. She is tentatively scheduled for 12/28/2023. I spent 30 minutes in his consult for history, review of imaging and discussing plan of care. Thank you for letting me take care of the patient. Olegario Cheema MD, PhD Spine Fellowship Trained Neurosurgeon Director, [facility] [place] [facility] Coding Level of Care Code Est Pt Level 4 (45314) Diagnoses Neuroforaminal stenosis of lumbar spine M48.061 Lumbar radiculopathy, right M54.16
== END 2023-11-29 13:49 | disposition home or self-care (01) ==
PROVIDERS: PCP Internal Medicine; Visit Provider Neurological Surgery
DX: M48.061 Spinal stenosis, lumbar region without neurogenic claudication (principal); M54.16 Radiculopathy, lumbar region
CPT/HCPCS: 99214

== ENCOUNTER → 2023-11-29 13:02 | Outpatient (BNVA) | payer MEDICARE, SELFPAY | PROVIDERS: PCP Internal Medicine; Visit Provider Neurological Surgery | DX: M48.061 Spinal stenosis, lumbar region without neurogenic claudication (principal); M54.16 Radiculopathy, lumbar region; Z98.1 Arthrodesis status | CPT/HCPCS: 99212 ==

== ENCOUNTER 2023-12-28 08:46 | Day surgery (SDC) | payer MEDICARE, SELFPAY ==
--- NOTE | 2023-12-27 10:48 | P.CONAN_ITS ---
Documented by User: Norma Johns NP 12/27/23 10:51 HPI - Anesthesia Eval Consult details Narrative: 83yo F for Right L4 Foraminotomy Pacer in situ Optimized per [facility] Cardiology s/p TLIF 2022 with GA-ETT 7 PMFSH Active Problems Active Problems: All Active Problems Lumbar radiculopathy, right (Acute) Neuroforaminal stenosis of lumbar spine (Acute) Status post lumbar and lumbosacral fusion by anterior technique (Acute) Back pain of lumbar region with sciatica (Acute) Past Medical History Medical History Murmur, cardiac Hx of cardiac pacemaker (08/10/22) Back pain Peptic ulcer Diverticulosis Osteopenia Hypothyroid GERD (gastroesophageal reflux disease) Type 2 diabetes mellitus Lumbar stenosis with neurogenic claudication Elevated cholesterol HTN (hypertension) Family History Family history of problems with anesthesia: No Surgical History Surgical History Hx of spinal surgery (07/25/22) Hx of bilateral cataract extraction Hx of neck surgery Hx of tubal ligation H/O colonoscopy History of carpal tunnel release History of back surgery History of Problems with Anesthesia: No Social History Social History Household Members: Spouse and Significant Other Housing: House Are you a primary clinical care leader to a significant other at home: No Do you presently have visiting nurse or other home services: No Comment: uses cane on occasion Patient Tobacco Use Status: Never used Tobacco Use of substances other than those prescribed or required for medical reasons: No Have you been hit, kicked, punched, or otherwise hurt by someone within the past year? If so, by whom?: No Are you DNR?: No Advance Directives: No Advance Directives Information Provided: Yes Advance Directives on File: No Healthcare Proxy: No Recently lost weight without trying: No Nutrition Risks: Surgical patient >75years service: No Current occupational status: retired [employer] Allergies Allergy/AdvReac Type Severity Reaction Status Date / Time No Known Allergies Allergy Verified 12/28/23 09:07 Home Medications ?Medication ?Instructions ?Recorded ?Confirmed ?Last Taken ?Type aspirin 81 mg tablet,delayed 81 mg PO DAILY 07/13/22 12/13/23 12/21/23 History release calcium carbonate 600 mg-vitamin 1 tab PO BID 07/13/22 12/13/23 07/24/22 History D3 10 mcg (400 unit) tablet famotidine 20 mg tablet 20 mg PO BID PRN Acid Reflux 07/13/22 12/13/23 12/28/23 08:00 History hydrochlorothiazide 25 mg tablet 12.5 mg PO QAM 07/13/22 12/13/23 07/24/22 History levothyroxine 50 mcg tablet 50 mcg PO QAM 07/13/22 12/13/23 12/28/23 08:00 History lisinopril 10 mg tablet 10 mg PO QAM 07/13/22 12/13/23 07/24/22 History simvastatin 40 mg tablet 40 mg PO BEDTIME 07/13/22 12/13/23 07/24/22 History omega-3s 300 nq-ssp-dkl-other 1 cap PO QAM 07/14/22 12/13/23 12/21/23 History [id number] oil 1,000 mg capsule (Clancy-3 Fish Oil) Exam Height,Weight and Vital Signs: Height 5 ft 1 in Weight 72.121 kg Narrative Narrative: Pacer interrogation 10/2023 Nml lead and device function No events EKG 11/2023 A-paced rhythm with prolonged AV conduction Possible anterior infarct No change per cardiology clearance note Assessment and Plan Assessment Anesthesia Assessment: Chart Reviewed Final Anesthetic Review Family History of Problems with Anesthesia: No History of Problems with Anesthesia: No Documented by User: Lyssa Wood MD 12/28/23 11:02 HPI - Anesthesia Eval Consult details Narrative: 83yo F for Right L4 Foraminotomy Pacer in situ Optimized per [facility] Cardiology s/p TLIF 07/25/2022 with GA-ETT 7 PMFSH Active Problems Active Problems: All Active Problems Lumbar radiculopathy, right (Acute) Neuroforaminal stenosis of lumbar spine (Acute) Status post lumbar and lumbosacral fusion by anterior technique (Acute) Back pain of lumbar region with sciatica (Acute) Dual chamber pacemaker insertion 07/2022. No issues Past Medical History Medical History Murmur, cardiac Hx of cardiac pacemaker (08/10/22) Back pain Peptic ulcer Diverticulosis Osteopenia Hypothyroid GERD (gastroesophageal reflux disease) Type 2 diabetes mellitus Lumbar stenosis with neurogenic claudication Elevated cholesterol HTN (hypertension) Family History Family history of problems with anesthesia: No Surgical History Surgical History Hx of spinal surgery (07/25/22) Hx of bilateral cataract extraction Hx of neck surgery Hx of tubal ligation H/O colonoscopy History of carpal tunnel release History of back surgery History of Problems with Anesthesia: No Social History Social History Household Members: Spouse and Significant Other Housing: House Are you a primary clinical care leader to a significant other at home: No Do you presently have visiting nurse or other home services: No Comment: uses cane on occasion Patient Tobacco Use Status: Never used Tobacco Use of substances other than those prescribed or required for medical reasons: No Have you been hit, kicked, punched, or otherwise hurt by someone within the past year? If so, by whom?: No Are you DNR?: No Advance Directives: No Advance Directives Information Provided: Yes Advance Directives on File: No Healthcare Proxy: No Recently lost weight without trying: No Nutrition Risks: Surgical patient >75years service: No Current occupational status: retired [employer] Allergies Allergy/AdvReac Type Severity Reaction Status Date / Time No Known Allergies Allergy Verified 12/28/23 09:07 Home Medications ?Medication ?Instructions ?Recorded ?Confirmed ?Last Taken ?Type aspirin 81 mg tablet,delayed 81 mg PO DAILY 07/13/22 12/13/23 12/21/23 History release calcium carbonate 600 mg-vitamin 1 tab PO BID 07/13/22 12/13/23 07/24/22 History D3 10 mcg (400 unit) tablet famotidine 20 mg tablet 20 mg PO BID PRN Acid Reflux 07/13/22 12/13/23 12/28/23 08:00 History hydrochlorothiazide 25 mg tablet 12.5 mg PO QAM 07/13/22 12/13/23 07/24/22 History levothyroxine 50 mcg tablet 50 mcg PO QAM 07/13/22 12/13/23 12/28/23 08:00 History lisinopril 10 mg tablet 10 mg PO QAM 07/13/22 12/13/23 07/24/22 History simvastatin 40 mg tablet 40 mg PO BEDTIME 07/13/22 12/13/23 07/24/22 History omega-3s 300 vn-ljo-rto-other 1 cap PO QAM 07/14/22 12/13/23 12/21/23 History [id number] oil 1,000 mg capsule (Clancy-3 Fish Oil) Exam Height,Weight and Vital Signs: Height 5 ft 1 in Weight 72.121 kg Vital Signs Temp Pulse Resp BP Pulse Ox O2 Del Method 12/28/23 09:19 97.8 F 61 15 129/62 94 Room Air Airway Mallampati Class: II TM Dist: >3cm Neck ROM: Full Partial: Upper Loose/Missing/Broken Teeth: Yes (Partial top dentures. Missing molars. Denies loose teeth) Heart: RRR + systolic murmur Lungs: CTAB Assessment and Plan Assessment Anesthesia Assessment: Anesthesia Plan Discussed and Chart Reviewed Final Anesthetic Review Family History of Problems with Anesthesia: No History of Problems with Anesthesia: No NPO: Yes ASA Class: III Final Preanesthetic Review: No Changes in Pt Med Stat, Meds/Allgs Chart Reviewed, Consent Obtained/Reviewed and Anes Risks/Benef Reviewed Patient Risk: Intermediate Procedure Risk: Low Assessment/Block/Sedation in SS: Assess/Block/Sedation-SS Anesthetic Plan Anesthetic Plan: GA Disposition: Standard PACU
[2023-12-28] VITALS (7 sets, daily range): BP systolic 117–135; BP diastolic 50–63; PULSE 59–76; RESP 15–16; TEMP 36.6–36.9; O2SAT 94–98; BMI 30.4
[2023-12-28] MEDS: Gabapentin 300 MG CAPSULE PO (09:12)
[2023-12-28] MEDS: methocarbamoL 750 MG TABLET PO (09:12)
[2023-12-28] MEDS: Lactated Ringers 1,000 ML 100 ML IVCONT (09:29)
--- NOTE | 2023-12-28 09:53 | MHC.SHP ---
Pre-Procedural Eval Section A - 24 Hr Update-Section A only Date of Service: 12/28/23 The patient is an INPATIENT: No Section B - Complete if H&P > 30 days Chief Complaint: Radiculopathy, lumbar region,spinal stenosis Details of Present Illness: Right lumbar radiculopathy Allergies: Allergies Allergy/AdvReac Type Severity Reaction Status Date / Time No Known Allergies Allergy Verified 12/28/23 09:07 Review of Systems Sugical H&P ROS: Negative: Constitution, Cardiovascular, Respiratory, Neurological, Psychiatric, Hem-Onc, Allergic/Immunologic, Gastrointestinal, Genitourinary, Musculoskeletal, Integumentary, Endocrine and Eyes/Ears/Nose/Throat Exam Surgical H&P Exam: Normal: HEENT, Normal: Heart, Normal: Lungs, Normal: Extremities, Normal: Abdomen, Normal: Skin and Normal: Neurological (Awake, alert) Plan Diagnosis/Plan: Unchanged I have reviewed the history and physical and performed a pertinent physical examination on my patient. No changes have occurred unless specified. Right L4 foraminotomy Time Spent With Patient Time: Total time managing care of this patient today ____ minutes.
--- NOTE | 2023-12-28 11:48 | P.OP_ITS ---
Operative Note Operative Note Date of Service: 12/28/23 Narrative: Preoperative Diagnosis: Spinal stenosis/lateral recess stenosis/neural foraminal stenosis Operation: L4 Laminotomy, complete facetectomy and foraminotomy with use of microscope Consent Informed Consent was obtained for this operation. I have explained the nature, purpose and benefits of the operation. I have discussed the risks and benefit of the operation including possible complications or adverse events with pat ient/family. Alternative(s) were discussed with the patient with their relative benefits and risks as well as the consequences of not accepting the operation were included in obtaining consent. Surgeon: AMILCAR WARD MD, PHD Procedure Assisted By: mary Jiang Description of Procedure This patient had a previous L3-L5 lumbar fusion done, transkambin approach. She returned with right leg pain. CT scan shows right L4 foraminal stenosis with a piece of bone intraforaminal. The patient was offered a decompression of the nervous structures. The procedure complications were explained. The patient was consented. The patient was brought to the operating room and endotracheally intubated. The patient was turned in prone position on the Richard frame. Prep and drape was done followed by timeout. Physician assistant product manager provided access. A paramedian incision was made. The previous instrumentation was exposed. Intraoperative x-ray was confirmed that it was between the L4 and L5 pedicle screw. I drilled out the facet of L4-5 and did a total facetectomy. The dura and exiting L4 nerve root were identified in the L4 nerve root was followed into the foramen and further released from scar tissue. A nerve hook was used to feel if there was any bone fragment that could be removed from under the nerve root but nothing could be palpated.A long nerve hook could be easily passed lateral and dorsally from the nerve root, a sign of relief of the neuroforaminal stenosis and decompression of the nerve root . The microscope was removed. Hemostasis was done. Incision was closed in 2 layers. Steri-Strips were used to approximate incision. An OpSite with Tegaderm was used to cover the incision. All sponge needle counts were correct. Patient was extubated and transported in stable is to recovery room. Anesthesia: General Estimated Blood Loss (ml): Minimal Duration of Surgery: Under 60 Minutes Postoperative Plan: Discharge to home
--- NOTE | 2023-12-28 11:53 | P.DS_ITS ---
DS: Providers Provider Date of Service: 12/28/23 Date of discharge: 12/28/23 Primary care physician: ALIA Urena Admitting clinician: Olegario Cheema DS: Diagnosis Discharge Diagnosis (1) Lumbar radiculopathy, right: Status: Acute DS: Summary Time Attestation Discharge Coordination Time (in mins): 5 Quality: Safe Use of Opioids Does Pt have an Active Cancer Diagnosis on the Problem List?: No Quality: Stroke Does the patient have a stroke diagnosis?: No Physical Exam Vital Signs: Vital Signs: Last Vital Signs Temp 97.8 F 12/28/23 09:19 Pulse 61 12/28/23 09:19 Resp 15 12/28/23 09:19 BP 129/62 12/28/23 09:19 Pulse Ox 94 12/28/23 09:19 O2 Del Method Room Air 12/28/23 09:19 BMI result Body Mass Index 30.4 DS: Data Data Completed and Pending Completed studies during hospitalization [Text1]: Procedures Excision of Lumbar Vertebral Disc, Open Approach (07/25/22) Fusion of Lumbar Vertebral Joint with Interbody Fusion Device, Anterior Approach, Anterior Column, Open Approach (07/25/22) Insertion of Interspinous Process Spinal Stabilization Device into Lumbar Vertebral Joint, Open Approach (07/25/22) Monitoring of Peripheral Nervous Electrical Activity, Intraoperative, External Approach (07/25/22) Discharge Plan Discharge Patient Disposition: Home, Self-Care Referrals: Hilary Ignacio PA [Primary Care Provider] - 1 Week Discharge Medications: New oxycodone 5 mg tablet 5 mg PO Q4H PRN (Reason: pain) Qty: 20 0RF Rx Instructions: Partial Fill upon patient request. Continued simvastatin 40 mg tablet 40 mg PO BEDTIME famotidine 20 mg tablet 20 mg PO BID PRN (Reason: Acid Reflux) levothyroxine 50 mcg tablet 50 mcg PO QAM lisinopril 10 mg tablet 10 mg PO QAM hydrochlorothiazide 25 mg tablet 12.5 mg PO QAM calcium carbonate-vitamin D3 600 mg-10 mcg (400 unit) Tablet 1 tab PO BID Eola-3 Fish Oil 300-1,000 mg Capsule 1 cap PO QAM hydromorphone [Dilaudid] 2 mg tablet 2 mg PO Q4-6H PRN (Reason: pain) Qty: 60 0RF Rx Instructions: Partial Fill upon patient request. gabapentin 300 mg capsule 300 mg PO TID Qty: 90 0RF Held aspirin 81 mg Tablet,Delayed Release (Dr/Ec) 81 mg PO DAILY Hold Instructions: Resume on 01/04/24. You may resume Asprin 7 days after surgery Discharge Orders: Discharge Order (Routine); Ordered 12/28/23 Ordered By: Darrin Silverio Diet: Advance to usual diet Activity on Discharge: As tolerated Activity Restrictions/Additional Instructions: After your spinal surgery we ask you to observe the following restrictions/guidelines: Activity: It is normal to feel some discomfort as you increase your activity, but that will improve with time. We ask you avoid heavy lifting or acitivities that cause pain. As a general rule, 8lbs is a safe limit for lifting right after surgery. Walk as much as you feel comfortable but not to exhaustion. You will feel extra tired the first few days after surgery. Stay well hydrated. It is OK to walk up and down stairs You may return to driving when you are off narcotics (such as vicodin, oxycodone, dilaudid, etc), and you are back to normal functional capacity. If you have any concerns please check with office before driving. Return to work is specific to each patient and each surgery, so please speak with your doctor/PA at first follow up. Please bring paperwork such as FMLA at that time if you need it filled out. Medications: You may resume aspirin 7 days after surgery For optimum pain control, it is best to start with a combination of 500 mg of Tylenol every 4 hours with 600 mg of Motrin every 8 hours, and use narcotics as needed in between for breakthrough pain. We will give you a short supply of narcotics after surgery (usually one weeks worth). If you need more please call the office but do not use more than prescribed. You will need to give our office 48 hours notice if you need narcotics refilled and we do not fill narcotics on weekends or evenings. If you are on a narcotic, it is a good idea to take a stool softener such as colace or senna to avoid constipation If you take blood thinner such as aspirin, Plavix, Coumadin, Effient, Eliquis etc for conditions such as Afib, DVT, Pulmonary embolus, coronary disease, stents etc please speak with your surgeon about specific details as to when you can resume these medications. You can resume NSAIDs on post op day 1 (eg: Motrin, Naproxen, etc). Follow up: Please call the office, , after surgery to arrange a 3 week follow up for wound check. Wound Care: You may remove your dressing on the first day after surgery. ?You may ?leave open to air. Please do not remove the steri strips underneath. they will fall off on their own in one week. IT IS NORMAL FOR THE WOUND TO OOZE OR BE BLOODY FOR A FEW DAYS AFTER SURGERY. ?IF THIS HAPPENS JUST PLACE NEW DRESSING OVER IT TO AVOID STAINING CLOTHES. You may shower on post op day # 1 We ask that you do not let the water soak the wound. If it does get wet, just towel dry lightly. Please do not scrub your incision or place any type of chemical/ointment on the wound. No tub baths, pools or jacuzzis for one month. If you have any leaking or redness from your wound, or fevers, please call office Print Language: Armenian
== END 2023-12-28 13:25 | disposition home or self-care (01) ==
PROVIDERS: PCP Physician Assistant; Visit Provider Neurological Surgery
PROC: (CPT 63047; principal; 2023-12-28 11:00)
DX: M48.061 Spinal stenosis, lumbar region without neurogenic claudication (principal); M54.16 Radiculopathy, lumbar region; M25.551 Pain in right hip; M79.671 Pain in right foot; Z98.1 Arthrodesis status; R26.2 Difficulty in walking, not elsewhere classified; I10 Essential (primary) hypertension; Z95.0 Presence of cardiac pacemaker; Z79.82 Long term (current) use of aspirin; Z98.890 Other specified postprocedural states
CPT/HCPCS: 63047; J0131; J0690; J1100; J2371; J2405; J2704; J3010

== ENCOUNTER → 2023-12-28 08:46 | Outpatient (BNV) | payer MEDICARE, SELFPAY | PROVIDERS: PCP Physician Assistant; Visit Provider Neurological Surgery | DX: M48.061 Spinal stenosis, lumbar region without neurogenic claudication (principal); M54.16 Radiculopathy, lumbar region | CPT/HCPCS: 63047; 99499 ==

== ENCOUNTER 2024-01-22 14:24 | Outpatient (AMB) | payer MEDICARE, SELFPAY ==
--- NOTE | 2024-01-22 14:43 | A.SPINEOV_ITS ---
Intake Visit Reasons: 1st post op Intake Note: Mrs. Villalobos is here today for her 1st post op visit. Bilingual Branch Manager Required: No Allergies No Known Allergies Allergy (Verified 01/22/24 14:43) Assessment & Plan Assessment & Plan (1) Status post lumbar spine surgery for decompression of spinal cord: Code(s): Z98.890 - Other specified postprocedural states Category: Surgical Plan Operation: L4 Laminotomy, complete facetectomy and foraminotomy Jacque green a pleasant 83 year old female comes in today for 1st postoperative visit after lumbar decompression. To recap she has a previous history of L3-5 lumbar fusion as well. She was evaluated in clinic for severe pain radiating to her right hip to the low part of her leg. She reports good resolution of her severe pain, however she still has low grade nagging pain in her R leg. She has been taking her Gabapentin which has been providing symptom relief. She has been completing her ADLs without much issue and continues to walk with a walker. No new neurological deficits. Patient is able to ambulate well, rises from a sea gayatri position without difficulty. Incision site is closed, well healing, with no signs of drainage. We will follow-up with the patient in 6 weeks for their 2nd postoperative visit. Jersey Cheema MD,PhD [facility] Coding Level of Care Code Global (14178) Diagnoses Status post lumbar spine surgery for decompression of spinal cord Z98.890
== END 2024-01-22 15:10 | disposition home or self-care (01) ==
PROVIDERS: PCP Physician Assistant; Visit Provider Physician Assistant
DX: Z98.890 Other specified postprocedural states (principal)
CPT/HCPCS: 99024

== ENCOUNTER → 2024-01-22 14:24 | Outpatient (BNVA) | payer MEDICARE, SELFPAY | PROVIDERS: PCP Physician Assistant; Visit Provider Physician Assistant | DX: Z98.890 Other specified postprocedural states (principal) | CPT/HCPCS: 99212 ==

== ENCOUNTER 2024-09-03 09:50 | Outpatient (REF) | payer MEDICARE, SELFPAY ==
--- OUTSIDE RECORDS SUMMARY | 2024-09-02 13:30 | XMS_ITS | Encounter Summary ---
Author Organization [facility] Address [address] [place] [address] Care Team Providers Care Crematory Operator Name Role Phone Hilary Ignacio Primary Care Provider + Reason for Referral * Orthopedic (Routine) - Pending Review Specialty Diagnoses / Procedures Referred By Kee shepard Referred To Contact Orthopedic Surgery / Orthopaedic Surgery Diagnoses Carpal tunnel syndrome of left wrist Procedures Hand / UE Inj/Asp: L carpal tunnel Eliseo Grant MD [address] [facility] [address] [place] [address] Phone: tel: fax: Referral ID Status Reason Start Date Expiration Date V isits Requested Visits Authorized [id number] Pending Review 09/02/2024 09/02/2025 1 1 Reason for Visit * Reason Comments Follow-up pain * Consultation (Routine) - Authorized Specialty Diagnoses / Procedures Referred By Kee shepard Referred To Contact Orthopaedic Surgery Diagnoses Carpal tunnel syndrome of left wrist Hilary Ignacio PA [address] [facility] [address] [place] [address] Phone: tel: fax: Eliseo Grant MD [address] [facility] [address] [place] [address] Phone: tel: fax: Referral ID Status Reason Start Date Expiration Date Visits Requested Visits Authorized [id number] Authorized Specialty Services Required 07/24/2024 07/23/2025 12 12 Encounter Details Date Type Department Care Team (Late st Contact Info) Description 09/02/2024 1:30 PM EDT Office Visit Orthopedic Surgery - [place] [address] [facility] [address] [place] [id number] Eliseo Grant MD [address] [facility] [address] [place] [address] Carpal tunnel syndrome of left wrist (Primary Dx) Social History Tobacco Use Types Packs/Day Years Used Date Smoking Tobacco: Never Smokeless Tobacco: Never Alcohol Use Standard Drinks/Week Comments No 0 (1 standard drink = 0.6 oz pur e alcohol) Comments Unknown Sex and Gender Information Value Date Recorded Sex Assigned at Not on file Legal Sex Female 5:16 PM EST Gender Identity Not on file Sexual Orientation Not on file documented as of this encounter Last Filed Vital Signs Vital Sign Reading Time Taken Comments Blood Pressure - - Pulse - - Temperature - - Respiratory Rate - - Oxygen Saturation - - Inhaled Oxygen Concentration - - Weight 70.3 kg (155 lb) 09/02/2024 1:43 PM EDT Height 154.9 cm (5' 1 ) 09/02/2024 1:43 PM EDT Body Mass Index 29.29 09/02/2024 1:43 PM EDT documented in this encounter Progress Notes * Eliseo Grant MD - 09/02/2024 1:30 PM EDTAssociated Order(s): Hand / UE Inj/Asp: L carpal tunnel Post-Procedure Diagnose(s): Carpal tunnel syndrome of left wrist Date: September 02, 2024 Diagnosis: Left carpal tunnel syndrome CTS-6 of 22.5 Last seen: 08/19/24 HPI: Jacque Villalobos is a 83 y.o. female RHD presenting for followup regarding her left hand numbness andtingling. She says that she still has pain in that hand, it wakes her at night, she has not found the braces to be helpful. She says she just had multiple surgeries this year so she is interested in avoiding surgery if at all possible even for minor procedures. She is interested in a corticosteroidinjection. Objective Focused Exam: Left Upper Extremity Skin intact Significant arthritic changes with Grabiel and Heberden's nodes at the index and long finger. Fires EPL/FPL/FDP/IO SILT R/U decreased median nerve distribution palpable radial pulse Imaging: No new imaging Medical Decision Making (base on 2 out of 3 elements): Problems Addressed: Low- 1 stable chronic illness Tests Ordered and/or Reviewed: minimal Risk Level: Moderate risk: counseling regarding moderate risk procedure Assessment: Jacque Villalobos presents with follow-up for her left carpal tunnel syndrome. I again discussed her diagnosis and treatment options. I discussed that we could consider a corticosteroid injection which would provide symptomatic relief and likely predict her response to surgery. I explained that this may be limited in terms of the duration of her symptomatic relief and would not resolve her numbness.I discussed that ongoing operative treatment may can continue to cause compression of the nerve andfurther injury over time. She voiced understanding but still like to avoid surgery at this time andelected to undergo a carpal tunnel corticosteroid injection into the left carpal tunnel which she tolerated well. I explained that she can return as needed for new worsening or persistent symptoms. Plan: Left carpal tunnel syndrome with CTS 6 of 22.5 -Interested in trial of nonoperative treatment - Carpal tunnel corticosteroid injection - Follow-up for new worsening or persistent symptoms. Hand / UE Inj/Asp: L carpal tunnel for carpal tunnel syndrome Indications: pain and therapeutic Details: 27 G needle, volar approach Medications: 40 mg triamcinolone acetonide 40 mg/mL Outcome: tolerated well, no immediate complications Site was prepped in standard fashion using alcohol swab, sterile technique was used to perform the injection, the patient tolerated the procedure well and a band-aid dressing was applied Informed Consent: Site: Carpal tunnel Laterality: Left Relevant images/test results available and reviewed: yes Health status cleared: N/A Procedure/treatment, purpose, treatment alternatives, risks/potential complications and benefits explained: yes Risk/complications/benefits details: Risk/complications/benefits details: Risks and benefits of corticosteroid injection were discussed, including risk of pain, bleeding, infection, tissue attenuation, tendon rupture, changes in skin color, and injury to surrounding structures such as arteries, veins and nerves. We also discussed the patient may develop worsening pain for a few days before having improvement in their symptoms. Patient questions answered: yes Patient agrees, verbalizes understanding, and wants to proceed: yes Consent given by: Patient Informed consent discussion completed by Physician/BEAU with patient: Verbal Pre-procedure timeout performed: yes Eliseo Grant MD documented in this encounter Plan of Treatment Upcoming Encounters Date Type Department Care Team (Late st Contact Info) Description 12/03/2024 2:30 PM EDT Office Visit Orthopedic Surgery - [place] [address] [facility] [address] [place] [address] Eliseo Grant MD [address] [address] [place] [address] 01/23/2025 11:00 AM EST Office Visit Internal Medicine - [place] [address] [facility] [address] [place] [address] Hilary Ignacio PA [address] [facility] [address] [place] [address] documented as of this encounter Procedures Procedure Name Priority Date/Time Associated Diagnosis Comments HI INJECTION CARPAL TUNNEL THERAPEUTIC Routine 09/02/2024 1:30 PM EDT Carpal tunnel syndrome of left wrist documented in this encounter Results * HI INJECTION CARPAL TUNNEL THERAPEUTIC (09/02/2024 1:30 PM EDT) Narrative Eliseo Grant MD - 09/02/2024 1:30 PM EDT Eliseo Grant MD 09/02/2024 10:43 PM Hand / UE Inj/Asp: L carpal tunnel for carpal tunnel syndrome Indications: pain and therapeutic Details: 27 G needle, volar approach Medications: 40 mg triamcinolone acetonide 40 mg/mL Outcome: tolerated well, no immediate complications Site was prepped in standard fashion using alcohol swab, sterile technique was used to perform the injection, the patient tolerated the procedure well and a band-aid dressing was applied Informed Consent: Site: Carpal tunnel Laterality: Left Relevant images/test results available and reviewed: yes Health status cleared: N/A Procedure/treatment, purpose, treatment alternatives, risks/potential complications and benefits explained: yes Risk/complications/benefits details: Risk/complications/benefits details: Risks and benefits of corticosteroid injection were discussed, including risk of pain, bleeding, infection, tissue attenuation, tendon rupture, changes in skin color, and injury to surrounding structures such as arteries, veins and nerves. We also discussed the patient may develop worsening pain for a few days before having improvement in their symptoms. Patient questions answered: yes Patient agrees, verbalizes understanding, and wants to proceed: yes Consent given by: Patient Informed consent discussion completed by Physician/BEAU with patient: Verbal Pre-procedure timeout performed: yes us Eliseo Grant MD IN CLINIC/BEDSIDE ORDERABLES Fin al Result documented in this encounter Visit Diagnoses Diagnosis Carpal tunnel syndrome of left wrist- Primary documented in this encounter Administered Medications Inactive Administered Medications - up to 3 most recent administrations Medication Order MAR Action Action Date Dose Rate Site triamcinolone acetonide (KENALOG-40) 40 mg/mL injection 40 mg 40 mg, intrasynovial, Once PRN Procedure, Starting on 09/02/24 at 1330, For 1 doseIndications:Carpal tunnel syndrome of left wrist Given 09/02/2024 1:30 PM EDT 40 mg documented in this encounter Orders Medications Ordered That Brooks ht Not Have Been Administered Count Last Ordered Date First Ordered Date triamcinolone acetonide (KERI ALOG-40) 40 mg/mL injection 40 mg 1 09/02/2024 documented in this encounter Additional Health Concerns Assessment Noted Time PHQ-9 Depression Total Score: 0 07/24/19 25 1:25 PM EDT documented as of this encounter Care Teams Crematory Operator Relationship Specialty Start Date End Date Hilary Ignacio PA [address] [place] [address] PCP - General 09/01/23 documented as of this encounter
--- OUTSIDE RECORDS SUMMARY | 2024-09-03 10:34 | XMS_ITS | Patient Health Record ---
Author Organization [facility] Address [address] [facility] [address] [place] [address] Care Team Providers Care River Expedition Guide Name Role Phone Kai Wilkins Primary Care Provider ARTUR Hwang Unavailable [phone] Allergies No Known Allergies Reason For Referral Reason Rt foot bunion Diagnosis 1 Bunion of right foot (M21.611) Referring Provider First Name Kai Referring Provider Last Name Franky Referred Organization [facility] Referred Provider ARTUR CHASE Referred Address [address] [facility] [address],[place], [place],[address], Referred Provider Specialty Podiatry Referral Priority Routine Medications Medication SIG (Take, Route, Frequency, Duration) Notes Start Date End Date Status Ranitidine 150 Max Strength Active Levothyroxine Sodium 50 MCG 1 tablet in the morning on an empty stomach Orally Once a day Active Simvastatin 40 MG 1 tablet in the even ing Orally Once a day Active Gabapentin 300 MG 1 capsule before bed Once a day for 90 day(s) Active oxyCODONE-Acetaminophen 5-325 MG 1 tablet as needed for severe pain Orally every 6 hrs for 5 days 09/21/2020 Not-Takin g Ibuprofen 600 MG 1 tablet with food o r milk as needed Orally Three times a day as needed for pain and inflammation for 30 days 09/21/2020 Not-Taking Lisinopril-hydroCHLOROthi azide 10-12.5 MG 1 tablet Orally Once a day Active Aspirin 81 MG 1 tablet Orally Once a day Active Calcium Carbonate-Vitamin D3 600-400 MG-UNIT 1 tablet with a meal Orally Once a day Active Glucose Blood - as directed In Vitro Active Problems Problem Type SNOMED Code ICD Code Onset Dates Problem Status W/U Status Risk Notes Problem 43839243 Sciatica, right side (M54.31) Active confirmed Problem 481503439 Bunion of right foot (M21.611) Active confirmed Problem 761070264 Painful orthopaedic hardware (T84.84XA) Active confirmed Problem 786664068 Neuritis of righ t lower extremity (G57.91) Active confirmed Problem 9510390 Lumbosacral radiculopathy at L5 (M54.17) Active confirmed Vital Signs Height 61in in 11/24/2023 Weight 163.5 lbs 11/24/2023 BMI 30.89 kg/m2 11/24/2023 Encounters Encounter Location Date Provider Diagnosis [facility] [address] [address] 11/24/2023 ARTUR CHASE Peripheral neuritis of right foot G57.91 and Lumbosacral radiculopathy at L5 M54.17 [facility] [address] [address] 10/27/2023 ARTUR CHASE Assessments Encounter Date Diagnosis (ICD Code) Assessment Notes Treatment Notes Treatment Clinical Notes Section Notes 11/24/2023 Peripheral neuritis of right foot (ICD-10 - G57.91) Patient examined and evaluated. I reviewed her past medical history in detail. Since my last visit with her she has had two lower lumbar surgeries for her radiculopathy. She continues to have symptoms around the L5 region affecting her right hip and foot. I discussed with her that this is not related to her past foor surgery. Her bunion has been fixed and her lingering issues have to do with her spine. I advised that she follow back with her neurosurgeon about her continued symptoms. She expressed understanding of this. She can follow back with me as needed. 11/24/2023 Lumbosacral radiculopathy at L5 (ICD-10 - M54.17) Plan Of Treatment Pending Test Test Name Order Date X ray : Foot, right, 2 views 07/23/2021 EMG/NCV ARMS 07/16/2020 X ray : Foot, right 3v 09/02/2019 X ray : Foot, right 3v 06/16/2020 INJ TENDON SHEATH/LIGAMENT/FASCIA 2021 Insurance Providers Payer Name Payer Address Payer Phone Subscriber Number Group Number Insured Name Patient Relationship to Insured Coverage Start Date Coverage End Date [employer] [address] [place], [place] [id number] Wilfredo Jacque Self - patient is the insured Medications Administered Medication Instructions Date of Administration Dosage Notes Dexamethasone 08/13/2021 2 mg Kenalog 06/16/2020 40 mg Kenalog 08/13/2021 20 mg Medical (General) History Medical History History ICD Code Carpal tunnel syndrome, unspecified uppe r limb G56.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
--- NOTE | 2024-09-03 10:45 | MHC.AU.ANO ---
Adult Audiological Evaluation Date of Visit: 09/03/24 Reason for Appointment: Gradual decline in hearing. Does patient feel they have a hearing loss?: Yes If Yes, Which Ear?: Both Ears When Was Hearing Difficulty First Noticed?: This year. Has hearing been tested previously?: No Previous Hearing Test Results: Otoscopy: Right Ear: Completely occluded with cerumen Left Ear: Unremarkable Tympanometry: Tympanometry performed due to: To determine if cerumen blockage is fully occluding canal(s) Right Ear: 0.6 cm3 [employer] Left Ear: 0.7 cm3 -31 daPa 0.46 mmho Interpretation of Results: Further evaluation deferred due to occluding cerumen Ad. Recommend cerumen removal by physician due to diabetes as indicated in referral. Return for evaluation following cerumen removal. Recommendations: Follow-up with physician for cerumen removal. Diagnosis: Primary Diagnosis: H61.21 Impacted Cerumen, Right Ear Services Performed: Tympanometry (CPT 03315) Signature: Provider: Gely Pulido, CCC-A
== END 2024-09-03 09:51 | disposition home or self-care (01) ==
LOC: HO.SH 09:50
PROVIDERS: Visit Provider Physician Assistant
DX: Z01.118 Encounter for examination of ears and hearing with other abnormal findings (principal); H61.21 Impacted cerumen, right ear
CPT/HCPCS: 92567